=== PATIENT | female | born 1950 | race Caucasian/White ===

== ENCOUNTER 2019-08-11 17:51 | Emergency (ER) | payer OTHER ==
[~2019-08-11] VITALS: Ht 154.9 cm; Wt 56.7 kg
[2019-08-11 18:04] VITALS: BP_SYST 159
[2019-08-11 20:09] VITALS: BP_SYST 144
== END 2019-08-11 20:09 | disposition home or self-care (01) ==
LOC: SED 17:51
DX: S86.811A Strain of other muscle(s) and tendon(s) at lower leg level, right leg, initial encounter (principal); X58.XXXA Exposure to other specified factors, initial encounter; Y93.89 Activity, other specified; Y92.89 Other specified places as the place of occurrence of the external cause; Y99.8 Other external cause status
CPT/HCPCS: 93971; 99284

== ENCOUNTER 2019-08-26 18:37 | Inpatient (IN) | payer OTHER ==
[~2019-08-26] VITALS: Ht 154.9 cm; Wt 58.1 kg
[2019-08-26 19:10] VITALS: BP_SYST 118
--- NOTE | 2019-08-26 19:32 | NUR ---
wPatient triaged and placed in waiting room. VSS and patient appears in no acute distress at this time. Accompanied by family, awaiting available bed, and MD notified of need for MSE.
[2019-08-26 22:11] LABS: HEMOGLOBIN 14.1 g/dL (12.0-16.0); RED BLOOD CELL COUNT(AUTO) 4.88 MIL/uL (4.2-6.2); WHITE BLOOD COUNT (AUTO) 10.9 K/uL (4.8-10.8)
[2019-08-26 22:12] LABS: BASOPHILS # (AUTO) 0.1 K/uL (0.0-0.2); BASOPHILS % (AUTO) 0.6 % (0.0-2.0); EOSINOPHILS # (AUTO) 0.1 K/uL (0.0-0.4); EOSINOPHILS % (AUTO) 1.1 % (0.0-4.0); HEMATOCRIT 42.8 % (36-48); LYMPHOCYTES # (AUTO) 1.4 K/uL (1.0-5.5); LYMPHOCYTES % (AUTO) 12.4 % (20.5-51.5); MEAN CORPUSCULAR HEMOGLOBIN 29 pg (27-31); MEAN CORPUSCULAR HGB CONC 33 % (32-36); MEAN CORPUSCULAR VOLUME 88 fL (79.0-98.0); MONOCYTES # (AUTO) 0.4 K/uL (0.0-1.0); MONOCYTES % (AUTO) 3.6 % (1.7-9.3); NEUTROPHILS % (AUTO) 82.3 % (40.0-70.0); PLATELET COUNT (AUTO) 271 K/uL (130-430)
[2019-08-26 22:16] LABS: CALCIUM 9.4 mg/dL (8.4-11.0); CREATININE 0.82 mg/dL (0.55-1.30); POTASSIUM 4.1 mmol/L (3.5-5.1)
[2019-08-26 22:19] LABS: PROTHROMBIN TIME 9.9 SECS (9.5-12.5)
[2019-08-26 22:22] LABS: ALBUMIN 3.9 g/dL (3.4-4.8); TOTAL BILIRUBIN 0.7 mg/dL (0.0-1.0)
--- NOTE | 2019-08-27 01:37 | NUR ---
Patient to ER bed 01 to gown for evaluation. Side rails up. Report given to ANGELITO Tran
--- NOTE | 2019-08-27 01:55 | NUR ---
Pt presents to ER with c/o abdominal pain, nausea and vomiting. Pt A&Ox4. Pt states epigastric pain began yesterday. Pt states pain is currently 6/10. Pt states no medication taken for relief. Pt states nausea and vomiting. Pt states 2 episodes of non-bloody emesis yesterday. Pt breath sounds bilaterally clear with no use of accessory muscle use. Will continue to monitor.
--- NOTE | 2019-08-27 02:10 | NUR ---
ER at bedside examining patient.
--- NOTE | 2019-08-27 03:34 | NUR ---
systems technologist at bedside.
--- NOTE | 2019-08-27 05:10 | NUR ---
# 20 gauge angiocath placed to L forearm. Use of asceptic technique. Opsite placed over site. Blood return noted. Flushed with 10 cc of normal saline. No evidence of infiltration noted. Patient tolerated well.
[2019-08-27] MEDS ORDERED: PIPERACILLIN/TAZO 3.375 GM in NS 50 ML IV ONE (05:30)
--- NOTE | 2019-08-27 05:34 | NUR ---
Blood cultures and lactic acid taken from IV site. Blood sent to lab.
[2019-08-27] MEDS ORDERED: PIPERACILLIN/TAZOBACTAM 3.375 GM/VIAL (ZOSYN) IV ONE (05:57)
--- NOTE | 2019-08-27 06:09 | NUR ---
Patient will be admitted to [facility]. Admitted to MEDICAL/SURGICAL unit. AWAITING BED PLACEMENT. Belongings list completed. Complete and up to date summary report printed. SBAR report to be given at bedside with opportunity for questions.
--- NOTE | 2019-08-27 06:21 | NUR ---
ASSISTED PT TO RESTROOM TO COLLECT URINE SAMPLE. PT WALKS WITH STEADY GAIT.
[2019-08-27 07:03] LABS: BILIRUBIN,URINE NEGATIVE (NEGATIVE); CLARITY/URINE CLEAR (CLEAR); COLOR,URINE YELLOW (YELLOW); GLUCOSE,URINE NEGATIVE (NEGATIVE); KETONES,URINE NEGATIVE (NEGATIVE); LEUKOCYTE ESTERASE ,URINE 1+ (NEGATIVE); NITRITE, URINE NEGATIVE (NEGATIVE); PH,URINE 7.5 (5.0-8.0); PROTEIN URINE NEGATIVE (NEGATIVE); UROBILINOGEN,URINE 0.2 (0.2-1.0)
[2019-08-27 07:04] LABS: BLOOD, URINE TRACE (NEGATIVE)
[2019-08-27 07:10] LABS: BACTERIA,URINE MODERATE /HPF (None Seen)
--- NOTE | 2019-08-27 07:24 | NUR ---
pt arrives from home w/ /co abd pain radiating to the back. Report received from Chidi EATON. Currently waiting for a Med Surg bed.
[2019-08-27] MEDS ORDERED: NACL 0.9% 1,000 ML IV SCH (07:30)
[2019-08-27] MEDS ORDERED: HYDROcodone/ACETAMIN 5-325 MG TAB (NORCO/ VICODIN) PO PRN ×2 (07:30→13:30)
[2019-08-27] MEDS ORDERED: ACETAMINOPHEN 325 MG TABLET PO PRN (07:30)
[2019-08-27] MEDS ORDERED: ONDANSETRON HCL 4 MG/2 ML VIAL IVP PRN ×3 (07:30→14:30)
--- NOTE | 2019-08-27 07:58 | NUR ---
EKG done and given to
--- NOTE | 2019-08-27 08:17 | NUR ---
CONSULTATION PAGED/CALLED Reason for Consultation: CHOLELITHIASIS Person Who was Notified: ALDAIR Consulting Physician: Dr. Schrader Loader Helper Specialty: surgeon Ordering Physician: Dr. Robles
[2019-08-27 08:22] LABS: PHOSPHORUS 3.8 mg/dL (2.7-4.5); THYROID STIMULATING HORMONE 3.74 uIu/mL (0.36-3.74)
--- NOTE | 2019-08-27 08:23 | NUR ---
Patient will be admitted to care of Dr Diaz. Admitted to Med Surg unit. Will go to room 124-a. Belongings list completed. Complete and up to date summary report printed. SBAR report to be given at bedside with opportunity for questions. Bedside report. IV is on the RAC 20g, patent and infusing well.
--- NOTE | 2019-08-27 08:36 | NUR ---
ADMISSION NOTE Received patient from ER via christian, received report from FERMIN EATON. Patient admitted with diagnosis of CHOLELITHIASIS. Patient oriented to hospital routine, call light, toileting and safety-patient verbalized understanding.
[2019-08-27 08:50] VITALS: BP_SYST 111
[2019-08-27] MEDS ORDERED: metroNIDAZOLE 500 mg/NS 100 ML IV ONE (09:00)
[2019-08-27] MEDS: DOCUSATE SODIUM 100 MG CAPSULE PO SCH ×2 (09:00→20:31)
[2019-08-27] MEDS: cefTRIAXone 1 GM in D5W 50 ML IV SCH (09:12)
--- NOTE | 2019-08-27 09:17 | NUR ---
Patient received/Medication patient resting in bed a/ox4, denies pain, assessment complete, IV line is patent and infusing well, educated live in companion light system and plan of care, she verbalized understanding, educated on IV antibiotics uses and potential side effects, she verbalized understanding, bed in lowest position, two side rails up, call light within reach, fall and aspiration precautions in place.
--- NOTE | 2019-08-27 10:21 | NUR ---
RN rounds/Medication patient resting in bed, awake, denies pain, educated on IV antibiotic uses and potential side effects, she verbalized understanding, IV line is patent and infusing well, MRSA nares screen complete, no other needs at this time, bed in lowest position, two side rails up, call light within reach, fall and aspiration precautions in place.
[2019-08-27 12:14] VITALS: BP_SYST 113
--- NOTE | 2019-08-27 12:15 | NUR ---
RN rounds patient resting in bed, awake, denies pain, assisted patient to the restroom, ambulates with steady gait, she tolerated well, informed her that Dr. Hubbard will come to see her soon to talk about the surgery, she verbalized understanding, IV line is patent and infusing well, no other needs at this time, bed in lowest position, two side rails up, call light within reach, fall and aspiration precautions in place.
--- NOTE | 2019-08-27 12:25 | NUR ---
Dr. Haydee trevino spoke with the patient about the surgery, explained the risks and benefits, answered the patient's questions, patient signed the consent with no further questions or concerns.
--- NOTE | 2019-08-27 12:35 | NUR ---
Patient off the unit to the OR, patient is in stable condition, IV line is patent and infusing well.
--- NOTE | 2019-08-27 12:43 | NUR ---
Dr. Robles rounds came to see the patient, directed him to the OR, where he spoke with the patient, will follow up with any new orders.
[2019-08-27] MEDS ORDERED: HYDROmorphone 1 MG INJ. 1 MG/ML AMPUL IVP PRN (13:30)
[2019-08-27] MEDS ORDERED: metroNIDAZOLE 500 mg/NS 100 ML IV SCH ×2 (14:00→15:00)
[2019-08-27] MEDS ORDERED: ROCURONIUM BROMIDE 10 MG/ML (ZEMURON) ONE (14:15)
[2019-08-27] MEDS ORDERED: DEXAMETHASONE SOD PHOSPHATE 4 MG/ML VIAL ONE (14:15)
[2019-08-27] MEDS ORDERED: MIDAZOLAM HCL 5 MG/ML VIAL (VERSED) IV ONE (14:15)
[2019-08-27] MEDS ORDERED: PROPOFOL 200MG/ 20ML VIAL (DIPRIVAN) IV ONE (14:15)
[2019-08-27] MEDS ORDERED: NS IRRIG SOLN 1000 ML IR ONE (14:15)
[2019-08-27] MEDS ORDERED: LR 1,000 ML IV.SOLN IV ONE (14:15)
[2019-08-27] MEDS ORDERED: METOCLOPRAMIDE HCL 10 MG/2 ML VIAL ONE (14:15)
[2019-08-27] MEDS ORDERED: SUGAMMADEX SODIUM 200 MG/2 ML VIAL IV ONE (14:15)
[2019-08-27] MEDS ORDERED: KETOROLAC TROMETHAMINE 30 MG VIAL ONE (14:15)
[2019-08-27] MEDS ORDERED: fentaNYL CITRATE/PF 100 MCG/2 ML AMP ONE (14:15)
[2019-08-27] MEDS ORDERED: DESFLURANE 15 MIN GAS INH ONE (14:15)
[2019-08-27] MEDS: HYDROmorphone 1 MG INJ. 1 MG/ML AMPUL IVP PRN ×2 (14:20→14:55)
[2019-08-27 15:07] VITALS: BP_SYST 113
[2019-08-27] MEDS: D5/0.45 NS 1,000 ML IV SCH ×2 (15:08→23:22)
[2019-08-27] MEDS: CEFAZOLIN 1 GM IVPB PREMIX 50 ML IV SCH ×2 (15:10→20:31)
--- NOTE | 2019-08-27 15:15 | NUR ---
Patient back on the unit from OR, report received, patient is a/o x4, states mild pain to the right shoulder at this time, patient received pain medication prior to transfer to unit, x4 band aids on the abdomen, clean, dry and intact, patient is on room air, re-oriented her to the call light, she verbalized understanding at this time, new IVF hung per MD orders, educated the patient on IV antibiotic uses and potential side effects, she verbalized understanding, IV line is patent and infusing well, continuing to monitor, bed in lowest position, three side rails up, bed alarm on, call light placed within reach, fall and aspiration precautions in place.
[2019-08-27] MEDS: metroNIDAZOLE 500 mg/NS 100 ML IV SCH ×2 (15:58→20:31)
--- NOTE | 2019-08-27 16:01 | NUR ---
RN rounds patient resting in bed, eyes closed, breathing is even and unlabored, no signs of distress, easy to wake, IV antibiotic hung and infusing well, IV line is patent and infusing well, provided patient with ice chips, continuing to monitor, bed in lowest position, three side rails up, bed alarm on, call light is within reach, fall and aspiration precautions in place.
--- NOTE | 2019-08-27 16:55 | NUR ---
Dietitian Recommendations * Recommend continuing clear liquid diet (ONS Ensure Clear TID comes standard w/ clear liquid diet; provides an additional 720 kcal/day, 24 gm protein/day) * Consider advance diet if/when medically appropriate LP, RD Please refer to Nutrition Assessment for details. Addendum: 08/27/19 at [address] Amended: Links added.
--- NOTE | 2019-08-27 17:00 | NUR ---
RN rounds patient resting in bed, eyes closed, breathing is even and unlabored, post op vital signs continuing at this time, no signs of distress, continuing to monitor, bed in lowest position, three side rails up, bed alarm on, call light is within reach, fall and aspiration precautions in place, IV line is patent and infusing well.
--- NOTE | 2019-08-27 18:18 | NUR ---
RN rounds patient more awake now, denies pain, offered jello and water, patient states she will try to have something, aspiration precautions in place, post op vital signs complete, continuing to monitor the patient, bed in lowest position, three side rails up, call light placed within reach, fall precautions in place, IV line is patent and infusing well.
--- NOTE | 2019-08-27 18:56 | NUR ---
Closing note patient resting in bed, awake ,denies pain, all needs met, will endorse report to NOC shift nurse, bed in lowest position, three side rails up, call light within reach, fall and aspiration precautions in place.
[2019-08-27 20:00] VITALS: BP_SYST 113
--- NOTE | 2019-08-27 20:00 | NUR ---
RECEIVED PT LYING IN BED WITH FAMILY AT BEDSIDE ,ABDOMEN WITH STERI STRIPX4 DRY AND INTACT,IV INFUSING WELL ,PT MEDICATED FOR PAIN ,AMBULATED TO BATHROOM VOIDED ,IN BED REPOSITION MADE COMFORTABLE.
[2019-08-28 01:07] VITALS: BP_SYST 93
--- NOTE | 2019-08-28 04:00 | NUR ---
PT RESTED IN NO DISTRESS AT THIS TIME REPOSITIONED MADE COMFORTABLE
[2019-08-28] MEDS: metroNIDAZOLE 500 mg/NS 100 ML IV SCH (05:37)
[2019-08-28] MEDS: ACETAMINOPHEN 325 MG TABLET PO PRN ×2 (05:45→14:37)
[2019-08-28 06:07] LABS: CREATININE 0.73 mg/dL (0.55-1.30); POTASSIUM 3.9 mmol/L (3.5-5.1); TOTAL BILIRUBIN 0.6 mg/dL (0.0-1.0)
[2019-08-28 06:35] LABS: BASOPHILS % (AUTO) 0.2 % (0.0-2.0); HEMATOCRIT 39.9 % (36-48); HEMOGLOBIN 12.7 g/dL (12.0-16.0); LYMPHOCYTES % (AUTO) 8.1 % (20.5-51.5); MEAN CORPUSCULAR HEMOGLOBIN 28 pg (27-31); MEAN CORPUSCULAR HGB CONC 32 % (32-36); MEAN CORPUSCULAR VOLUME 88 fL (79.0-98.0); MONOCYTES # (AUTO) 0.8 K/uL (0.0-1.0); MONOCYTES % (AUTO) 6.7 % (1.7-9.3); PLATELET COUNT (AUTO) 238 K/uL (130-430); RED BLOOD CELL COUNT(AUTO) 4.53 MIL/uL (4.2-6.2); RED CELL DISTRIBUTION WIDTH 13.9 % (9.0-15.0); WHITE BLOOD COUNT (AUTO) 11.8 K/uL (4.8-10.8)
[2019-08-28 08:00] VITALS: BP_SYST 104
--- NOTE | 2019-08-28 08:00 | NUR ---
a/ox4, denies pain, IV line at left FA, #20, is patent and infusing well, educated instructional systems designer light and POC, she verbalized understanding. Call light in place, bed locked at the lowest position with two rails up,
[2019-08-28] MEDS: DOCUSATE SODIUM 100 MG CAPSULE PO SCH (08:05)
[2019-08-28] MEDS: cefTRIAXone 1 GM in D5W 50 ML IV SCH (08:05)
[2019-08-28] MEDS ORDERED: IBUP-1969 PO (09:19)
[2019-08-28] MEDS ORDERED: NITR-85 PO (09:19)
--- NOTE | 2019-08-28 10:49 | NUR ---
Nutrition Consult Nutrition Consult received for s/p troy 08/28/19 0856. Nutrition Assessment completed 08/27/19. Please refer to Nutrition Assessment for details. RD to continue to follow as per nutrition care standards.
--- NOTE | 2019-08-28 11:48 | NUR ---
Nutrition Education RD was contacted by pt's primary RN regarding need for nutrition education s/p gallbladder removal. RD met w/ pt at bedside and provided medical nutrition therapy. Please refer to interdisciplinary teaching record for details.
[2019-08-28 13:15] VITALS: BP_SYST 97
--- NOTE | 2019-08-28 13:30 | NUR ---
Dr. Schrader is called, and he indicated that patient can be discharged. Macrina also instructs to have patient follow up with him in a week.
[2019-08-28 14:08] VITALS: BP_SYST 97
--- NOTE | 2019-08-28 14:25 | NUR ---
P.T. NOTES P.T. AVIS COMPLETED; PATIENT MAY AMBULATE IN ROOM AD MIKE. Addendum: 08/28/19 at 1426 by Sabine Miranda PT Amended: Links added.
--- NOTE | 2019-08-28 14:45 | NUR ---
D/C Patient Patient given medication reconciliation form and D/C instructions. Exit Care provided. Patient verbalized understanding. MD discussed with patient the results and treatment provided. Ambulatory with steady gait for discharge to home. Patient in stable condition, ID band removed. IV catheter removed, intact and dressing applied, no active bleeding. Rx is prescribed electronically to patient's preferred pharmacy. Patient educated on pain management. All belongings sent with patient.
--- NOTE | 2019-09-02 16:09 | NUR ---
Discharge Follow Up Phone Call Phoned patient, . Patient stated she is improving. She attended her follow up appointment with surgeon, Dr Schrader today. She has a follow up appointment with her PCP and urologist on 09/10/19. She filled her Macrobid rx and is taking her medications as directed. She stated that she wanted a copy of her complete medical record. No other questions or concerns. Transferred her call to Medical Records.
== END 2019-08-28 14:46 | disposition home or self-care (01) | DRG 418 ==
LOC: SED 18:37 → SMU 08-27 06:00
PROVIDERS: ADMIT Student in an Organized Health Care Education/Training Program; ATTEND Student in an Organized Health Care Education/Training Program
PROC: 0FT44ZZ Resection of Gallbladder, Percutaneous Endoscopic Approach (ICD-10-PCS; principal; 2019-08-27 13:10)
DX: K80.00 Calculus of gallbladder with acute cholecystitis without obstruction (principal); N39.0 Urinary tract infection, site not specified; N13.30 Unspecified hydronephrosis; K57.90 Diverticulosis of intestine, part unspecified, without perforation or abscess without bleeding; K83.8 Other specified diseases of biliary tract; E83.41 Hypermagnesemia; Z85.3 Personal history of malignant neoplasm of breast; Z90.722 Acquired absence of ovaries, bilateral
CPT/HCPCS: 36415; 71045; 76700-TC; 80053; 80061; 81000-TC; 82150-TC; 83036; 83690-TC; 83735-TC; 83880; 84100-TC; 84443-TC; 84484; 85025; 85610-TC; 87040-TC; 87081; 87086; 88304; 93005; 96365; 99285; C1727; C9399; J0690; J0696; J1100; J1170; J1885; J2250; J2405; J2543; J2704; J2765; J3010; J3490; J7030; J7060; J7120